=== PATIENT | female | born 1975 | race Caucasian/White ===

== ENCOUNTER 2022-09-21 10:57 | Emergency (ER) | payer OTHER ==
[~2022-09-21] VITALS: Ht 167.6 cm; Wt 67.1 kg
--- NOTE | 2022-09-21 11:08 | NUR ---
BIBS C/O BODYACHES, CHILLS, COUGH, CONGESTION X 4 DAYS. PLACED ON BED, BREATHING EVEN AND UNLABORED SATURATING AT 96%RA.
--- NOTE | 2022-09-21 11:23 | NUR ---
SWAB FOR COVID19 AND RAPID ANTIGEN SENT TO LAB
--- NOTE | 2022-09-21 11:24 | NUR ---
X-RAY TECH AT BEDSIDE
--- NOTE | 2022-09-21 13:42 | NUR ---
10MINS FOR RESULT PER LAB
[2022-09-21] MEDS ORDERED: ALBU8.5H8 INH (13:53)
[2022-09-21] MEDS ORDERED: AZIT250T PO (13:53)
--- NOTE | 2022-09-21 13:58 | NUR ---
Patient discharged to home in stable condition. Written and verbal after care instructions given. Patient verbalizes understanding of instruction.
[2022-09-21 13:59] VITALS: BP 130/85
== END 2022-09-21 13:58 | disposition home or self-care (01) ==
LOC: ER 10:57
DX: J40 Bronchitis, not specified as acute or chronic (principal); Z20.822 Contact with and (suspected) exposure to COVID-19
CPT/HCPCS: 99284; 71045; 87426; 87804; C9803

== ENCOUNTER 2024-07-25 08:25 | Emergency (ER) | payer OTHER ==
[~2024-07-25] VITALS: Ht 167.6 cm; Wt 67.6 kg
[~2024-07-25 08:25] MED LIST: ALBU8.5H8 INH; AZIT250T PO
[2024-07-25 09:07] VITALS: BP 129/96; TEMP 98.7; O2SAT 98
== END 2024-07-25 09:05 | disposition home or self-care (01) ==
LOC: ER 08:33
DX: T37.1X1A Poisoning by antimycobacterial drugs, accidental (unintentional), initial encounter (principal); Z87.09 Personal history of other diseases of the respiratory system; Y92.89 Other specified places as the place of occurrence of the external cause
CPT/HCPCS: 98960

== ENCOUNTER 2024-09-29 12:57 | Emergency (ER) | payer OTHER ==
[~2024-09-29] VITALS: Ht 167.6 cm; Wt 67.6 kg
[2024-09-29 13:05] VITALS: BP 139/76; TEMP 97.9; O2SAT 99
== END 2024-09-29 14:37 | disposition home or self-care (01) ==
LOC: ER 13:33
DX: S61.217A Laceration without foreign body of left little finger without damage to nail, initial encounter (principal); Z87.01 Personal history of pneumonia (recurrent); W26.8XXA Contact with other sharp object(s), not elsewhere classified, initial encounter; Y93.89 Activity, other specified; Y92.098 Other place in other non-institutional residence as the place of occurrence of the external cause; Y99.8 Other external cause status

== ENCOUNTER 2025-08-29 11:36 | Emergency (ER) | payer OTHER ==
[~2025-08-29] VITALS: Ht 167.6 cm; Wt 65.3 kg
[2025-08-29 11:42] VITALS: BP 139/93; TEMP 98.2
[2025-08-29] MEDS ORDERED: AMOX-430 PO (11:57)
[2025-08-29 12:27] VITALS: O2SAT 98
== END 2025-08-29 12:28 | disposition home or self-care (01) ==
LOC: ER 11:42
DX: S60.410A Abrasion of right index finger, initial encounter (principal); Z87.01 Personal history of pneumonia (recurrent); W53.21XA Bitten by squirrel, initial encounter; Y93.89 Activity, other specified; Y92.89 Other specified places as the place of occurrence of the external cause; Y99.9 Unspecified external cause status